=== PATIENT | male | born 1965 | race Caucasian/White ===

== ENCOUNTER 2018-08-24 10:52 | Outpatient (RCR) | payer BC, SELFPAY | END 2018-08-24 13:00 | disposition home or self-care (01) | LOC: PT 10:52 | PROVIDERS: Visit Provider Student in an Organized Health Care Education/Training Program | DX: R29.898 Other symptoms and signs involving the musculoskeletal system (principal); I63.9 Cerebral infarction, unspecified; R20.0 Anesthesia of skin | CPT/HCPCS: 97110; 97163 ==